=== PATIENT | female | born 1975 | race Caucasian/White ===

== ENCOUNTER 2022-12-12 12:58 | Emergency (ER) | payer OTHER, SELFPAY ==
[2022-12-12 13:15] VITALS: BP 127/72; PULSE 77; RESP 16; TEMP 36.1; O2SAT 97; BMI 30.9
--- NOTE | 2022-12-12 13:36 | CRLHL7_ITS ---
For Patients: As a result of the Century Cures Act, medical imaging exams and procedure reports are released immediately into your electronic medical record. You may view this report before your referring provider. If you have questions, please contact your health care provider. INDICATION: Fall. TECHNIQUE: Noncontrast CT images acquired through the cervical spine. COMPARISON: None. FINDINGS: Reversal of the cervical lordosis. Mild rightward cervical curvature. No acute fracture or traumatic subluxation. Grade 1 anterolisthesis of C4 on C5, C5 on C6, and C6 on C7. 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 Shallow multilevel posterior disc osteophyte complexes. Mild multilevel facet arthropathy and uncinate spurring. No high-grade spinal canal or neural foraminal stenosis. Subcentimeter hypoattenuating lesion in the right thyroid lobe, nonspecific. Diffusely heterogeneous attenuation the thyroid gland. The lung apices are clear. IMPRESSION: 1. No acute fracture or traumatic subluxation. 2. Multilevel cervical spondylosis. 3. 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 4. Diffuse heterogeneity of the thyroid gland is nonspecific. Thyroid function tests and/or thyroid ultrasound may be helpful for further evaluation. Please note that all CT scans at this facility use dose modulation, iterative reconstruction, and/or weight-based dosing when appropriate to reduce radiation dose to as low as reasonably achievable. Dictated by Vin Mott MD @ 12/12/2022 2:49:21 PM (Electronically Signed)
--- NOTE | 2022-12-12 14:10 | ED_ITS ---
HPI - Fall General Chief Complaint: Fall/Minor Trauma Stated Complaint: Fell down stairs, Sent from Urgent Care Time Seen by Provider: 12/12/22 13:07 History of Present Illness HPI Narrative: 47-year-old woman presenting to the emergency department with her after falling down 6 or 7 carpeted stairs in a mishap while trying to close a doggy gate. She was seen by either 16-year-old daughter in this fall on apparently struck the crown of her head on a metal door the base of the steps. To occur about 30 seconds to get up. She does not believe she lost consciousness. Does not have significant headache. No visual disturbances no gait disturbance. She is having pain in her left real thinking she bruise that. She has some pain in her right wrist as well sort of a burning sensation. And some burning sensation in her neck. Does have a history of neck problems and is concerned about her neck in particular. She was seen initially in Urgent Care and placed in a C- collar and directed here. She is not having radicular symptoms down her arms or legs. Is not really nauseated. Not feel she needs anything for pain. No abdominal pain. No back pain. No shortness of breath. Related Data Home Medications Medication Instructions Recorded Confirmed escitalopram oxalate 5 mg tablet 5 mg PO DAILY 12/12/22 12/12/22 Allergies Allergy/AdvReac Type Severity Reaction Status Date / Time No Known Drug Allergies Allergy Verified 12/12/22 12:47 Review of Systems Status of ROS: Reports: 6 or more systems reviewed and unremarkable except as noted in History and below [facility] Social History Smoking Status: Never smoker Do you use any of these nicotine containing products: None How often do you have a drink containing alcohol: never AUDIT-C Alcohol total score: 0 Non-prescribed substance use: denies use service: Yes Exam Narrative: Exam Narrative: Pleasant. NAD. Seated stiffly in C-collar, flatter affect initially. Cranial nerves 2-12 intact. Pursing easily breathing easily. Extremities well perfused. Skin is warm and dry. There is mild swelling subtle bruising in the mid anterior lower leg. Superior scalp there is mild swelling and sensitivity. No defect otherwise is appreciated. No fluid external ears nor is there Prince sign. Is sore to midline palpation of the low neck. She is not sore in the paracervical musculature. Right wrist is some mild tenderness to palpation centrally. No palmar bruising. No scaphoid tenderness. She has good rotational movement and good strength though maybe a little bit less than I might expect to squeeze. Const: Vital Signs, click to edit/add: Vital Signs - 24 hr 12/12/22 13:15 Temperature 97.0 F L Pulse Rate [Right Pulse Oximeter] 77 Respiratory Rate 16 Blood Pressure [Ri ght Upper Arm] 127/72 Pulse Oximetry 97 Oxygen Delivery Me thod Room Air Documenting provider has reviewed patient's vital signs: yes Course Vital Signs Vital signs: Initial Vital Signs Temperature 97.0 F L 12/12/22 13:15 Temperature Source Temporal Artery Scan 12/12/22 13:15 Pulse Rate 77 12/12/22 13:15 Pulse Rhythm Regular 12/12/22 13:15 Respiratory Rate 16 12/12/22 13:15 Blood Pressure 127/72 12/12/22 13:15 Blood Pressure Mean 90 12/12/22 13:15 Pulse Oximetry 97 12/12/22 13:15 Oxygen Delivery Method Room Air 12/12/22 13:15 Vital Signs Temperature 97.0 F L 12/12/22 13:15 Pulse Rate 77 12/12/22 13:15 Respiratory Rate 16 12/12/22 13:15 Blood Pressure 127/72 12/12/22 13:15 Pulse Oximetry 97 12/12/22 13:15 Oxygen Delivery Method Room Air 12/12/22 13:15 Temperature 97.0 F L 12/12/22 13:15 Pulse Rate 77 12/12/22 13:15 Respiratory Rate 16 12/12/22 13:15 Blood Pressure 127/72 12/12/22 13:15 Pulse Oximetry 97 12/12/22 13:15 Oxygen Delivery Method Room Air 12/12/22 13:15 MDM - Fall MDM Narrative Medical decision making narrative: Primary findings are present in the neck. While I think there is any possibility of intracranial injury I think it rises to level of potential concussion less likely head bleed. I think wrist is likely more of a potential sprain. We agreed to monitor without imaging at this time. Ordered for CT of cervical spine. I did review these images. Reversed cervical lordosis noted. Radiology over-read noted without acute abnormalities. Chronic changes are noted. In addition of thyroid nodule. See over-read below FINDINGS: Reversal of the cervical lordosis. Mild rightward cervical curvature. No acute fracture or traumatic subluxation. Grade 1 anterolisthesis of C4 on C5, C5 on C6, and C6 on C7. 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 Shallow multilevel posterior disc osteophyte complexes. Mild multilevel facet arthropathy and uncinate spurring. No high-grade spinal canal or neural foraminal stenosis. Subcentimeter hypoattenuating lesion in the right thyroid lobe, nonspecific. Diffusely heterogeneous attenuation the thyroid gland. The lung apices are clear. IMPRESSION: 1. No acute fracture or traumatic subluxation. 2. Multilevel cervical spondylosis. 3. 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 4. Diffuse heterogeneity of the thyroid gland is nonspecific. Thyroid function tests and/or thyroid ultrasound may be helpful for further evaluation. See patient discharge plan Discharge Plan Discharge Clinical Impression: Concussion, Closed head injury, Contusion, Cervical sprain, Thyroid nodule, Sprain of wrist Patient Disposition: Home w/ Parent or Adult Condition: Stable Instructions: Head Injury (ED), Ice Pack Application (ED) Additional Instructions: Consider icing your real 2 - 3 times daily over the next few days. Focus on hydration. Rest. Wear the soft collar for comfort over this next week. Can do neck pulldowns as demonstrated also a few times daily. See handout for stretches for the upper back. Signs and symptoms of a concussion can be headache and nausea on exertion which would also be an indication to back off that level of activity and reassess in 1 week.? Other signs might be a smoldering headache or nausea for an extended period of time, mood lability, sleep disturbances, difficulty with concentration, persistent light sensitivity. I would be seen if these symptoms present and persist for a week. Return for severe headache, repeated vomiting, new and focal weakness, visual changes, discoordination, unusual somnolence. Can take up to 800 mg of ibuprofen or up to 1000 mg of acetaminophen per dose. I would ice your wrist as well as above. Also follow-up in week if not improved. See handout Follow-up with primary to discuss further evaluation of your thyroid. Probably in the next couple weeks Activity Level: Activity as Tolerated Discharge Diet: Regular Prescriptions: No Action escitalopram oxalate 5 mg tablet 5 mg PO DAILY Follow Up/Referrals: Rachel Muir PA-C [Primary Care Provider] - Stand Alone Forms: [employer] Info Instructions
== END 2022-12-12 15:22 | disposition home or self-care (01) ==
PROVIDERS: Emergency Provider Family Medicine; PCP Physician Assistant Medical
DX: M25.531 Pain in right wrist (principal); S13.4XXA Sprain of ligaments of cervical spine, initial encounter; E04.1 Nontoxic single thyroid nodule; F07.81 Postconcussional syndrome; W10.9XXA Fall (on) (from) unspecified stairs and steps, initial encounter
CPT/HCPCS: 72125; 99284

== ENCOUNTER 2024-06-23 06:22 | Day surgery (SDC) | payer OTHER, SELFPAY ==
[2024-06-23] VITALS (15 sets, daily range): BP systolic 105–138; BP diastolic 47–74; PULSE 56–70; RESP 10–16; TEMP 36.1–36.6; O2SAT 93–98; BMI 32.7
--- OUTSIDE RECORDS SUMMARY | 2024-06-23 06:25 | XMS_ITS | Clinical Summary ---
Author [facility] Address [place], [place] [address] Care Team Providers Care Fire Prevention Forester Name Role Phone Rachel Muir Primary Care Provider Allergies Active Allergy Reactions Criticality Noted Date Comments Venlafaxine Analogues Other - Describe I n Comment Field 04/03/2008 Bad nightmares Medications Medication Sig Dispensed Refills Start Date End Date Status LORazepam (ATIVAN) 0.5 mg tabIndications:A nxiety,Depressio n, unspecified depression type Take 1 Tablet (0.5 mg) by mouth 2 times daily if needed for Anxiety. 10 Tablet 05/15/2023 Active escitalopram oxalate (LEXAPRO) 5 mg tabletIndication s:Anxiety Take 1 Tablet (5 mg) by mouth once daily. 90 Tablet 3 06/06/2024 Active escitalopram oxalate (LEXAPRO) 5 mg tabletIndication s:Anxiety TAKE 1 TABLET(5 MG) BY MOUTH EVERY DAY 90 Tablet 3 05/15/2023 05/27/20 24 Discontinued benzonatate (Tessalon Perles) 100 mg capsuleIndicatio ns:Acute non-recurrent maxillary sinusitis Take 1 Capsule (100 mg) by mouth 3 times daily if needed for Cough. 30 Capsule 08/03/2023 06/06/20 24 Discontinued(*Pa tient states no longer taking) albuterol HFA (ProAir HFA) 90 mcg/actuation inhalerIndicatio ns:Acute non-recurrent maxillary sinusitis Inhale 1-2 Puffs by mouth every 6 hours if needed for Shortness of Breath 1st choice. 1 Each 08/03/2023 06/06/20 24 Discontinued(*Pa tient states no longer taking) escitalopram oxalate (LEXAPRO) 5 mg tabletIndication s:Anxiety Take 1 Tablet (5 mg) by mouth once daily. 30 Tablet 05/27/2024 06/06/20 24 Discontinued(Reo rder (E-cancel not sent)) Active Problems Problem Noted Date Diagnosed Date H/O total hysterectomy 02/19/2022 Ulnar sided wrist tendonitis 08/23/2012 Ulnar neuritis 08/23/2012 Adjustment disorder with depressed mood 04/03/20 08 Resolved Problems Problem Noted Date Diagnosed Date Resolved Date Depression 04/03/2008 04/03/2008 Encounters Date Type Department Care Team Description 06/14/[address] [address] Taisha Rogers MD Questions (BILLING CODES) 06/06/2024 1:40 PM CDT Preop Visit [facility] [address] [place] [address] Rachel Muir PA Preoperative Exam (Hemorrhoid ) 06/06/2024 Travel 05/24/2024 Refill [facility] [address] [place] [address] Rachel Muir PA Refill Request (Escitalopram Oxalate) 05/09/[address] [address] Taisha Rogers MD Questions 05/03/2024 4:15 PM CDT Office Visit [address] [address] Taisha Rogers MD Consult (hemorrhoids) 05/03/2024 Travel from Last 3 Months Immunizations Name Administration Dates Next Due Td, Preservative Free (age >= 7 Years) 9 Tdap 08/06/2015,05/11/2008 Family History Medical History Relation Name Comments Cancer-prostate Father Psychiatric illness Mother bipolar Cancer-breast Sister Relation Name Status Comments Father Mother Sister Social History Tobacco Use Types Packs/Day Years Used Date Smoking Tobacco: Never Smokeless Tobacco: Never Tobacco Cessation:Counseling Given: Yes Alcohol Use Standard Drinks/Week Comments Yes 0 (1 standard drink = 0.6 oz pur e alcohol) Rarely PHQ-2 Answer Date Recorded PHQ-2 TOTAL SCORE 1 05/15/2023 Social Connections Answer Date Recorded Do you often feel lonely or isolated from those around you? 0 08/03/2023 Financial Resource Strain Answer Date R ecorded Difficulty of Paying Living Expenses 3 08/03/2023 Difficulty of Paying Living Expenses Not on file 08/03/2023 Food Insecurity Answer Date Recorded Do you worry your food will run out before you are able to buy more? 1 08/03/2023 Transportation Needs Answer Date Record ed Does lack of transportation keep you from medica l appointments? 1 08/03/2023 Does lack of transportation keep you from work, meetings or getting things that you need? 1 08/03/2023 Housing Stability Answer Date Recorded What is your housing situation today? 1 08/03/2023 Sex and Gender Information Value Date Recorded Sex Assigned at Not on file Gender Identity Not on file Sexual Orientation Not on file Obstetrics History Last Filed Vital Signs Vital Sign Reading Time Taken Comments Blood Pressure 119/78 06/06/2024 1:44 PM CDT Pulse 73 06/06/2024 1:44 PM CDT Temperature 36.7 ??C (98.1 ??F) 08/03/2023 11:[address] Respiratory Rate 16 03/17/2018 11:23 AM CDT Oxygen Saturation 97% 05/03/2024 4:18 PM CDT Inhaled Oxygen Concentration - - Weight 94.8 kg (209 lb) 06/06/2024 1:44 PM CDT Height 169 cm (5' 6.54) 05/15/2023 2:57 PM CDT Body Mass Index 33.19 05/15/2023 2:57 PM CDT Plan of Treatment Upcoming Encounters Date Type Department Care Team (Late st Contact Info) Description 06/23/2024 8:00 AM CDT Office Visit [facility] at [facility] [address] [place] [address] Taisha Rogers MD [address] [place] [address] 07/25/2024 2:10 PM VAMP PRESSER Office Visit [facility] [address] [place], [place] [id number] [place] [address] [place] [address] [place] [address] 02/20/2025 2:00 PM CDT Telemedicine [facility] [address] [place] [address] Delores Morocho PA [address] [place] [address] Health Maintenance Due Date Last Done Comments HIV for age 15-65 1988 Hepatitis C screening for age 18-79 11/24/1991 Colonoscopy through age 75 2018 Zoster (shingles) series for age 50+ (1 of 2) 11/24/2023 COVID-19 vaccine series (2023- season) 2024 Influenza for age 50-64 04/24/2024 BMI (ht and wt on same day) for age 18+ 05/15/2024 05/15/2023, 09/25/2020, 04/04/2020, Additional history exists Depression screening for age 12+ 05/18/2024 05/18/2023, 05/15/2023, 09/25/2020, Additional history exists Mammogram for age 45-75 07/28/2024 07/28/20 23, 11/15/2021, 12/21/2018 Tetanus booster 08/06/2025 08/06/2015, 10/0 08/2008, 05/11/2008 Lipids for age 45-75 06/06/2029 06/06/2024, 05/15/2023, 02/19/2022 Tdap Completed 08/06/2015, 05/11/2008 Pneumococcal series for age 6-64 Aged Out No longer eligible based on patient's age to complete this topic Procedures Procedure Name Priority Date/Time Associated Diagnosis Comments HEMOGLOBIN Routine 06/06/2024 2:19 PM CDT H/O iron deficiency anemia TSH WITH REFLEX Routine 06/06/2024 2:19 PM CDT Fatigue, unspecified type HEMOGLOBIN A1C Routine 06/06/2024 2:19 PM CDT Screening for diabetes mellitus BASIC METABOLIC PANEL Routine 06/06/2024 2:19 PM CDT Screening for diabetes mellitus LIPID PANEL W REFLEX MEASURED LDL Routine 06/06/2024 2:19 PM CDT Screening cholesterol level XR MAMMO [place] BILAT DIAG Routine 07/28/2023 2:14 PM VAMP PRESSER Breast lump on right side at 9 o'clock position from Last 3 Months or Most Recently Relevant to Health Maintenance Results * HEMOGLOBIN A1C (06/06/2024 2:19 PM CDT) HEMOGLOBIN A1C 5.6 <5.7 % of total Hgb [facility] Quinn Comment: For the purpose of screening for the presence of diabetes: <5.7% ? Consistent with the absence of diabetes 5.7-6.4% ?Consistent with increased risk for diabetes ?(prediabetes) > or =6.5% ??Consistent with diabetes This assay result is consistent with a decreased risk of diabetes. Currently, no consensus exists regarding use of hemoglobin A1c for diagnosis of diabetes in children. According to [place] Diabetes Association (ADA) guidelines, hemoglobin A1c <7.0% represents optimal control in non- diabetic patients. Different metrics may apply to specific patient populations. Standards of Medical Care in Diabetes(ADA). ?? Blood BLOOD SPECIMEN / Unknown 06/06/2024 2:19 PM CDT 06/06/2024 2:19 PM CDT Rachel CAUSEY CHEMISTRY [employer] [facility] [address] [place] [address], [facility] [address] [place] [address] * TSH WITH REFLEX (06/06/2024 2:19 PM CDT) Pathologist [facility] TSH W/REFLEX TO FT4 2.05 mIU/L [facility] Comment: ?Reference Range ?> or = 20 Years ??0.40-4.50 ? Ranges ?First trimester ?0.26-2.66 ?Second trimester ?? 0.55-2.73 ?Third trimester ?0.43-2.91 Blood BLOOD SPECIMEN / Unknown 06/06/2024 2:19 PM CDT 06/06/2024 2:19 PM CDT Rachel CAUSEY CHEMISTRY [employer] [facility] [address] [place] [address], [facility] [address] [place] [address] * (ABNORMAL) LIPID PANEL W REFLEX MEASURED LDL (06/06/2024 2:19 PM CDT) Pathologist [facility] CHOLESTEROL, TOTAL 222(H) <200 mg/dL [facility] HDL CHOLESTEROL 32(L) > OR = 50 mg/dL [facility] TRIGLYCERIDES 359(H) <150 mg/dL [facility] Comment: If a non-fasting specimen was collected, consider repeat triglyceride testing on a fasting specimen if clinically indicated. Nubia et al. J. of Clin. Lipidol. 2015;9:129-169. LDL-CHOLESTEROL 135(H) mg/dL (calc) [facility] Comment: Reference range: <100 Desirable range <100 mg/dL for primary prevention; ?? <70 mg/dL for patients with CHD or diabetic patients with > or = 2 CHD risk factors. LDL-C is now calculated using the Charity calculation, which is a validated novel method providing better accuracy than the Friedewald equation in the estimation of LDL-C. Brandon SS et al. ANDREW. 2013;310(19): 9266-9461 (http://education.Simply Hired/faq/OSG223) CHOL/HDLC RATIO 6.9(H) <5.0 (calc) [facility] NON HDL CHOLESTEROL 190(H) <130 mg/dL (calc) [facility] Comment: For patients with diabetes plus 1 major ASCVD risk factor, treating to a non-HDL-C goal of <100 mg/dL (LDL-C of <70 mg/dL) is considered a therapeutic option. Blood BLOOD SPECIMEN / Unknown 06/06/2024 2:19 PM CDT 06/06/2024 2:19 PM CDT Rachel CAUSEY CHEMISTRY Performing Organization Address [facility] Co de Phone Number [employer] [facility] [address] [place] [address], [facility] [address] [place] [address] * HEMOGLOBIN (06/06/2024 2:19 PM CDT) HEMOGLOBIN 14.8 11.7 - 15.5 g/dL [facility] Blood BLOOD SPECIMEN / Unknown 06/06/2024 2:19 PM CDT 06/06/2024 2:19 PM CDT Rachel CAUSEY HEMATOLOGY Performing Organization Address City/[facility]/ZIP Co de Phone Number [employer] [facility] [address] [place] [address], [place] [phone] [facility] [address] [place] [address] * (ABNORMAL) BASIC METABOLIC PANEL (06/06/2024 2:19 PM CDT) Pathologist [facility] GLUCOSE 88 65 - 99 mg/dL [facility] Comment: ? Fasting reference interval UREA NITROGEN (BUN) 14 7 - 25 mg/dL [facility] CREATININE 0.73 0.50 - 1.03 mg/dL [facility] EGFR 100 > OR = 60 mL/min/1. 73m2 [facility] BUN/CREATININE RATIO SEE NOTE: 6 (calc) [facility] Comment: ?? Not Reported: BUN and Creatinine are within ?? reference range. ? SODIUM 139 135 - 146 mmol/L [facility] POTASSIUM 4.4 3.5 - 5.3 mmol/L [facility] CHLORIDE 103 98 - 110 mmol/L [facility] CARBON DIOXIDE 33(H) 20 - 32 mmol/L [facility] ELECTROLYTE BALANCE 3(L) 7 - 17 mmol/L (calc) [facility] CALCIUM 9.6 8.6 - 10.4 mg/dL [facility] Blood BLOOD SPECIMEN / Unknown 06/06/2024 2:19 PM CDT 06/06/2024 2:19 PM CDT Rachel CAUSEY CHEMISTRY [employer] [facility] [address] [place] [address], [place] [phone] [facility] [address] [place] [address] * XR MAMMO [place] BILAT DIAG (07/28/2023 2:14 PM VAMP PRESSER) Anatomical Region Laterality Modality BREASTS, Breast Left, Breast Right Bilateral Mammography 07/28/2023 2:42 PM VAMP PRESSER Impressions 07/28/2023 3:56 PM VAMP PRESSER No evidence of malignancy. RECOMMENDATIONS: Annual BILATERAL screening mammography. BI-RADS Category 2: Benign Results and recommendations discussed with the patient. Dictated by: Jono Erazo MD @07/28/2023 2:42:15 PM/vicki PATIENTS: You will also receive a letter with your examination results in an easy to read format. ??If you have questions about your results, please contact your referring provider. Narrative 07/28/2023 3:56 PM VAMP PRESSER As a result of the Cures Act, medical imaging exams and procedure reports are released immediately into your electronic medical record. ??You may view this report before your referring provider. ??If you have questions, please contact your health care provider. BILATERAL BREAST MAMMOGRAM DIGITAL DIAGNOSTIC WITH COMPUTER-AIDED DETECTION AND TOMOSYNTHESIS 07/28/2023 BILATERAL BREAST ULTRASOUND 07/28/2023 CLINICAL HISTORY: RIGHT breast lump. COMPARISON: 11/15/2021, 12/21/2018. TECHNIQUE: Digital BILATERAL mammogram in 4 projections. ??Computer-aided detection and tomosynthesis were used. Real-time ultrasound imaging of BILATERAL breast with imaging documentation. BREAST COMPOSITION: The breasts are heterogeneously dense, which may obscure small masses. ?? FINDINGS: 3D CC/MLO BILATERAL mammogram images submitted. Small nodular density may be present within the upper outer quadrant LEFT breast without architectural distortion. Dense tissue is present within the upper outer quadrant of the RIGHT breast. No suspicious calcifications or adenopathy. Targeted RIGHT breast ultrasound in the area palpable concern performed at 10 o'clock 6 cm from the nipple. Normal breast tissue is present. Similar findings are present LEFT breast 2 o'clock 5 cm from the nipple. Rachel CAUSEY MAMMO from Last 3 Months or Most Recently Relevant to Health Maintenance Care Teams Fire Prevention Forester Relationship Specialty Start Date End Date Rachel Muir PA [address] [place] [address] PCP - General Family Practice 08/06/15
[2024-06-23] MEDS: SODIUM CHLORIDE 0.9 % (FLUSH) 10 ML SYRINGE IVF ×2 (07:08→09:42)
--- NOTE | 2024-06-23 07:32 | W.PM.H&PU ---
History & Physical Update History & Physical Update H&P Reviewed and patient assessed: No changes noted
[2024-06-23] MEDS: CEFAZOLIN 1 GM inj IVP (07:45)
[2024-06-23] MEDS: BUPIVACAINE LIPOSOME 133 MG/10 ML INJ INFILTRATI (08:07)
[2024-06-23] MEDS: BUPIVACAINE 0.5% 30 ML INJECTION (08:07)
--- NOTE | 2024-06-23 08:29 | P.GSOP_ITS ---
Operative Note Date of procedure: 06/23/24 Pre-op diagnosis: Symptomatic external hemorrhoids Post-op diagnosis: Same Type of Procedure: 2-quadrant hemorrhoidectomy Indications: The patient is a 48-year-old female who has a history of external hemorrhoids which have caused her pain and discomfort as well as difficulty with hygiene. She has tried increasing her fiber in her diet as well. After discussion of option she elected to proceed with surgical hemorrhoidectomy. Procedure Description: After discussing the risks and benefits of the procedure, the patient signed informed consent.? The operative site was marked and the patient was brought to the operating room. Spinal anesthetic was then administered by the anesthesia team. The patient was then placed in prone scarlett-knife position with care to pad her pressure points. Sedation was then administered. The operative site was t hen prepped and draped in the usual sterile fashion.? A time-out was then performed. The perianal area was examined. The patient had prominent external hemorrhoidal tissue circumferentially. The 2 largest areas were in the right posterior and left lateral position. A digital rectal exam was performed. There were no masses. A Bazzi bivalve was then inserted into the anal canal. The external hemorrhoids did connect to a small internal hemorrhoidal cushion. I began the largest area in the right posterior. I created an ellipse in the anal derm encompassing the external hemorrhoidal tissue. This extended across the dentate line also encompass the redundant internal hemorrhoidal cushion. Care was taken to stay in the submucosal plane and avoid injury to the sphincter complex. The tissue was excised and discarded. The mucosa was then oversewn with 3-0 chromic suture in a locked fashion for hemostasis. I then turned my attention to the left lateral location which was the 2nd largest area of enlarged external hemorrhoidal tissue. This again connected to a very small internal hemorrhoidal cushion. Again the ellipse was fashioned using cautery on the anal derm extending into the anal canal. The hemorrhoidal tissue was dissected again with care to avoid the sphincter muscles which were deep to my plane of dissection. The tissue was then excised and the mucosa and anoderm were closed with a running chromic suture. Mix of 0.5% Marcaine and Exparel were then injected into the area underlying each of the hemorrhoidectomy incisions and a pudendal block was performed on each side. Hemostasis appeared excellent at the end of the case. Gauze was then applied. The patient was then woken and transported to the recovery area in stable condition. ? The patient tolerated the procedure well. Findings: Prominent external hemorrhoids in the right posterior and left lateral locations. Anesthesia: MAC and epidural Surgeon: Taisha Rogers MD Estimated blood loss (mL): 5 Condition: stable Disposition: PACU
--- NOTE | 2024-06-23 08:36 | W.ANESCHARGE ---
Anesthesia Charges Start Date/Time Anesthesia Start Date: 06/23/24 Anesthesia Start Time: 07:35 Stop Date/Time Anesthesia Stop Date: 06/23/24 Anesthesia Stop Time: 08:36
--- NOTE | 2024-06-23 08:54 | W.ANESCHARGE ---
Anesthesia Charges Start Date/Time Anesthesia Start Date: 06/23/24 Anesthesia Start Time: 07:35 Stop Date/Time Anesthesia Stop Date: 06/23/24 Anesthesia Stop Time: 08:36
[2024-06-23] MEDS: fentaNYL 100 MCG/2 ML inj 50 MCG IVP (08:59)
--- NOTE | 2024-06-23 09:19 | SUR.PHASEI ---
patient met discharge criteria per anesthesia
[2024-06-23] MEDS: HYDROmorphone 0.5 mg/0.5 ml inj IVP (09:42)
[2024-06-23] MEDS: HYDROCODONE-ACETAMIN 5-325 MG 1 TAB PO (09:42)
[2024-06-23] MEDS: hydrOXYzine pamoate 25 MG CAPSULE PO (10:47)
== END 2024-06-23 11:16 | disposition home or self-care (01) ==
PROVIDERS: PCP Physician Assistant Medical; Visit Provider Surgery
PROC: (CPT 46250; principal; 2024-06-23 07:30)
DX: K64.4 Residual hemorrhoidal skin tags (principal)
CPT/HCPCS: 46250; 00902; A9270; C9290; J0665; J0690; J1100; J1171; J2250; J2405; J2704; J3010